=== PATIENT | female | born 1975 | race Caucasian/White ===

== ENCOUNTER 2019-06-18 12:01 | Emergency (ER) | payer OTHER, SELFPAY ==
[2019-06-18] VITALS (7 sets, daily range): BP systolic 101–147; BP diastolic 66–84; PULSE 77–93; RESP 16–20; TEMP 36.4–37.2; O2SAT 93–100
--- NOTE | ~2019-06-18 | XR_ITS ---
EXAMINATION: XR chest 2V 06/18/2019 13:32 INDICATION: Shortness of breath PROCEDURE: 2 view chest COMPARISON: 12/14/2018 FINDINGS: The lungs are clear. The cardiomediastinal silhouette is within normal limits. There are no pleural effusions. There is no pneumothorax suspected. There are cholecystectomy clips. IMPRESSION: 1: NO ACUTE CARDIOPULMONARY DISEASE. Reviewed, dictated and finalized at location A.
--- NOTE | ~2019-06-18 | CT_ITS ---
EXAMINATION: CTA chest PE protocol EXAM DATE: 06/18/2019 18:43 INDICATION: Shortness of breath. TECHNIQUE: Spiral CTA of the chest (pulmonary arteries) was performed with 100 cc Omnipaque 350 intr avenous contrast injection. Images were acquired during the pulmonary arterial phase. Coronal maxi mum intensity projection 3D-reconstructions were created by the technologist on dedicated workstation . Axial, coronal and sagittal reformatted images were reviewed. The dose-length product (DLP) for t his examination was 462.02 mGy-cm. The exposure was tailored according to patient size (auto mA exp osure control), and iterative reconstruction (ASIR) was used as additional dose reduction technique. There is no prior study for comparison. FINDINGS: Pulmonary arteries are well opacified and without intraluminal filling defects. No thora cic aortic dissection. Linear right middle lobe subsegmental atelectasis. Vague left lower lobe grou ndglass opacities probably developing acute infectious process. There are no pleural or pericardial effusions. Tracheobronchial tree is patent. There is no mediastinal, hilar or axillary lymphadeno brandon. There is no pneumothorax. Heart normal in size. There is mild coronary arterial calcific ation, arterial sclerosis. There are cholecystectomy clips. There is mild thoracic spondylosis with out osteoblastic or osteolytic lesions identified. IMPRESSION: 1. Vague left lower lobe groundglass opacities likely developing pneumonia. 2. Bibasilar linear atelectasis. Reviewed, dictated and finalized at location A.
--- NOTE | 2019-06-18 12:15 | ECG_ITS ---
Measurements Intervals [place] Rate: 85 P: 152 AK: 133 QRS: -25 QRSD: 76 T: -28 QT: 351 QTc: 419 Interpretive Statements ECTOPIC ATRIAL RHYTHM POSSIBLE LEFT ATRIAL ENLARGEMENT LOW QRS VOLTAGE IN PRECORDIAL LEADS BORDERLINE T WAVE ABNORMALITY- INFERIOR LEADS ABNORMAL ECG Electronically Signed On 06-18-2019 13:04:36 CDT by Jacob Aponte D.O.
[2019-06-18 12:32] LABS: Basophils Percent Auto 0.2 % (0.2-1.2); Eosinophils Absolute Auto 0.4 K/mm3 (0-0.3); Eosinophils Percent Auto 3.8 % (0-4.4); Hematocrit 42.1 % (37.0-47.0); Hemoglobin 14.3 g/dL (12.0-15.0); Immature Granulocyte Absolute 0.06 K/mm3 (0.00-0.031); Immature Granulocyte Percent A 0.6 % (0-0.5); Lymphocytes Absolute Auto 1.92 K/mm3 (0.9-3.2); Lymphocytes Percent Auto 17.8 % (18.3-44.2); Mean Corpuscular Hemoglobin 32.5 pg (26-34); Mean Corpuscular Volume 95.7 fl (80-100); Mean Platelet Volume 9.2 fl (7.4-10.4); Monocytes Absolute Auto 0.8 K/mm3 (0.1-0.6); Monocytes Percent Auto 7.3 % (2.6-8.5); Neutrophils Absolute Auto 7.6 K/mm3 (1.3-6.7); Neutrophils Percent Auto 70.3 % (45.5-73.1); Platelet Count Result 335 k/mm3 (150-375); Red Cell Distribution Width 11.9 % (11.5-14.5); White Blood Count 10.8 K/mm3 (4.5-10.0)
[2019-06-18 12:46] LABS: Blood Urea Nitrogen 21 mg/dL (7-17); Calcium 9.1 mg/dL (8.4-10.2); Carbon Dioxide 22 mmol/L (22-30); Chloride 102 mmol/L (98-107); Estimated CRCL calculation 100 ml/min; Estimated Glomerular Filt Rate > 60; Glucose 80 mg/dL (65-105); Sodium 136 mmol/L (137-145)
--- NOTE | 2019-06-18 15:34 | ED.SOB ---
HPI - SOB/Dyspnea General Chief Complaint: Shortness of Breath/Dyspnea Stated Complaint: SOB Time Seen by Provider: 06/18/19 15:20 Source: patient and RN notes reviewed Mode of arrival: ambulatory Limitations: no limitations History of Present Illness HPI Narrative: Pt is a 43 y/o female presenting to the ED c/o SOB. Pt reports she was diagnosed with Influenza on 06/06 and states her Sx's have worsened since. Pt notes she was prescribed TamiFlu and is also taking DayQuil, NyQuil, and Sudafed. Pt reports CP described as heaviness radiating to her back, orthopnea, cough, rhinorrhea, diaphoresis, wheezing N/V that have since resolved, and body aches. Pt states she recently picked up Dr. Cervantes as her PCP but was seen at [facility] when she was diagnosed with Influenza. Pt states she has a Hx of asthma and notes she has been using her home inhaler of Albuterol about 5-6 times per day. Pt states she quit smoking on 06/05, and notes she formerly smoked 0.5 every 3 days. Pertinent past history: asthma Onset (ago): day(s) () Associated symptoms: chest pain (radiating to back), cough, wheezing, diaphoresis, nausea/vomiting (Resolved) and other (Rhinorrhea; Body aches) Related Data Allergies Allergy/AdvReac Type Severity Reaction Status Date / Time No Known Allergies Allergy Verified 06/18/19 16:46 Review of Systems Review of Systems: All systems reviewed & are unremarkable except as noted in HPI and below Constitutional: Constitutional: Reports body ache(s) ENT: Reports other (Rhinorrhea) Cardiovascular: Cardiovascular: Reports chest pain (Radiating to back) and Reports diaphoresis Respiratory: Respiratory: Reports cough, Reports dyspnea (Orthopnea) and Reports wheezing Gastrointestinal: Gastrointestinal: Reports nausea (Resolved) and Reports vomiting (Resolved) [facility] Past Medical History Medical History (Updated 06/18/19 @ 19:23 by Karma Oh MD) Asthma Influenza Surgical History Surgical History H/O spinal fusion C6-C7 History of x2 History of cholecystectomy Social History Social History Smoking status: Former smoker Smoking end date: 06/05/19 Exam Narrative: Exam Narrative: GENERAL: Well-appearing, well-nourished, and in no acute distress. HEAD: Normocephalic, atraumatic EYES: PERRLA and EOMI, conjunctiva clear without discharge EARS: TM's clear bilaterally without erythema or dullness NOSE: Nares clear, no rhinorrhea or epistaxis THROAT:Mucous membranes moist, Oropharynx normal without erythema, exudate, peritonsillar swelling or fluctuance NECK: Supple, without lymphadenopathy or mass HEART: Regular rate and rhythm. No murmur heard. Normal peripheral pulses. ABDOMEN: Soft, nontender, nondistended, normal active bowel sounds. No masses. No rebound or guarding, No organomegaly. EXTREMITIES: No edema, normal strength with full range of motion. SKIN: Warm, dry, normal color without rash NEURO: Alert and oriented x3. CN 2-12 grossly intact. No focal deficits. PSYCH: Normal mood and affect. Resp: Effort & Inspection: normal respiratory effort, not labored and not tachypneic Auscultation: wheezes expiratory wheezes and posterior Course Vital Signs Vital signs: Vital Signs Temperature 97.5 F L 06/18/19 12:20 Pulse Rate 93 06/18/19 12:20 Respiratory Rate 20 06/18/19 12:20 Blood Pressure 101/71 06/18/19 12:20 Pulse Oximetry 93 06/18/19 12:20 Temperature 98.9 F 06/18/19 20:48 Pulse Rate 89 06/18/19 20:48 Respiratory Rate 18 06/18/19 20:48 Blood Pressure 106/70 06/18/19 20:48 Pulse Oximetry 100 06/18/19 20:48 MDM - SOB/Dyspnea Differential Diagnosis Differential diagnosis: Likely acute exacerbation of chronic obstructive airways disease, community acquired pneumonia, asthma with exacerbation and pulmonary embolism Lab Data Attestation: I reviewed the pat
[2019-06-18] MEDS: ALBUTEROL SULFATE NEB 2.5 MG/0.5 ML INH 5 MG INHALATION (15:55)
[2019-06-18] MEDS: IPRATROPIUM BR 0.02% INH SOLN 0.5 MG/2.5 ML VIAL INHALATION (15:55)
[2019-06-18] MEDS: predniSONE 20 MG TABLET 60 MG PO (16:33)
[2019-06-18 16:46] LABS: INR 0.9; Prothrombin Time 11.8 Seconds (11.1-14.7)
[2019-06-18 16:47] LABS: Partial Thromboplastin Time 30.3 SECONDS (22.3-36.8)
[2019-06-18 16:49] LABS: D Dimer 0.49 ug/mL (<0.48)
[2019-06-18 17:15] LABS: Troponin I < 0.012 ng/mL (0.000-0.034)
[2019-06-18] MEDS: AZITHROMYCIN 250 MG TABLET 500 MG PO (20:02)
== END 2019-06-18 20:50 | disposition home or self-care (01) ==
PROVIDERS: Emergency Medicine; Emergency Provider General Practice
DX: J18.9 Pneumonia, unspecified organism (principal); J45.909 Unspecified asthma, uncomplicated; R94.31 Abnormal electrocardiogram [ECG] [EKG]; Z98.1 Arthrodesis status
CPT/HCPCS: 36415; 71046; 71275; 80048; 81025; 84484; 85025; 85380; 85610; 85730; 93005; 94640; 96365; 99284; A9270; J0696; J7512; Q9967

== ENCOUNTER 2020-06-12 13:34 | Emergency (ER) | payer OTHER, SELFPAY ==
--- NOTE | ~2020-06-12 | US_ITS ---
EXAMINATION: US pelvic complete w TV EXAM DATE: 06/12/2020 14:44 INDICATION: Pelvic pain, vaginal bleeding. TECHNIQUE: Pelvic transabdominal and transvaginal sonogram was performed. There are multiple graysca le and Doppler images available for interpretation. There is no prior study for comparison. FINDINGS: Uterus measures 8.2 x 5.4 x 4.1 cm, is anteverted and morphologically normal. Endometrial stripe measures 5 mm, within normal limits. There is no free pelvic fluid. Right adnexa: The ovary is not identified. There is no adnexal mass. Left adnexa: The ovary is not identified. There is no adnexal mass. IMPRESSION: 1. Unremarkable pelvic ultrasound exam. Reviewed, dictated and finalized at location A. 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
[2020-06-12 13:41] VITALS: BP 135/119; PULSE 110; RESP 20; O2SAT 100
--- NOTE | 2020-06-12 14:14 | ED.GENADULT ---
HPI - General Adult General Chief complaint: Vaginal Bleeding <Omega De Los Santos PA-C - Last Filed: 06/12/20 15:56> Stated complaint: vag bleed <Omega De Los Santos PA-C - Last Filed: 06/12/20 15:56> Time Seen by Provider: 06/12/20 13:41 <JUDI Stevens Last Filed: 06/12/20 15:56> Source: patient <Omega De Los Santos PA-C - Last Filed: 06/12/20 15:56> Mode of arrival: ambulatory <Omega De Los Santos PA-C - Last Filed: 06/12/20 15:56> Limitations: no limitations <Omega De Los Santos PA-C - Last Filed: 06/12/20 15:56> History of Present Illness HPI narrative: Patient is a 44-year-old female who presents to emergency department for evaluation of vaginal bleeding that started 1 day ago noting she woke with cramping and vaginal bleeding going through a pad roughly an hour patient notes that she has not had a period in a long time patient denies injury trauma or other complaints patient presents in no distress has not follow-up with gynecology for this nor does she deny similar occurrence in the past <Omega De Los Santos PA-C - Last Filed: 06/12/20 15:56> Related Data Allergies/adverse reactions: Allergies Allergy/AdvReac Type Severity Reaction Status Date / Time No Known Allergies Allergy Verified 06/18/19 16:46 <Omega De Los Santos PA-C - Last Filed: 06/12/20 15:56> Review of Systems Review of Systems: All systems reviewed & are unremarkable except as noted in HPI and below <Omega De Los Santos PA-C - Last Filed: 06/12/20 15:56> [facility] Past Medical History Medical History: Medical History Asthma Influenza <JUDI Stevens Last Filed: 06/12/20 15:56> Surgical History Surgical History: Surgical History H/O spinal fusion C6-C7 History of x2 History of cholecystectomy <JUDI Stevens Last Filed: 06/12/20 15:56> Social History Social History: Social History Smoking status: Former smoker Smoking end date: 06/05/19 <Omega De Los Santos PA-C - Last Filed: 06/12/20 15:56> Exam Narrative: Exam Narrative: GENERAL: Well-appearing, well-nourished, and in no acute distress. HEAD: Normocephalic, atraumatic. EYES: PERRLA and EOMI. ENT: Nares clear, no rhinorrhea or epistaxis. Mucous membranes moist. CHEST: Clear to auscultation. No respiratory distress. No wheezes rales or rhonchi HEART: Regular rate and rhythm. No murmur heard. Normal peripheral pulses. ABDOMEN: Soft, nontender, nondistended EXTREMITIES: Normal range of motion. No edema. SKIN: Warm, dry, no rash. NEURO: No focal deficits. Alert and oriented x3. PSYCH: Normal mood and affect. <Omega De Los Santos PA-C - Last Filed: 06/12/20 15:56> Course Course Emergency Course: Patient in the room resting comfortably in no distress will be discharged with plan follow-up with gynecology. Patient hemodynamically stable at this time no high risk changes in the evaluation patient agrees to follow with gynecology and will return if symptoms worsen <Omega De Los Santos PA-C - Last Filed: 06/12/20 15:56> Vital Signs Vital signs: Vital Signs Pulse Rate 110 H 06/12/20 13:41 Respiratory Rate 20 06/12/20 13:41 Blood Pressure 135/119 H 06/12/20 13:41 Pulse Oximetry 100 06/12/20 13:41 Pulse Rate 70 06/12/20 16:35 Respiratory Rate 16 06/12/20 16:35 Blood Pressure 110/72 06/12/20 16:35 Pulse Oximetry 98 06/12/20 16:35 <Omega De Los Santos PA-C - Last Filed: 06/12/20 15:56> Vital Signs Pulse Rate 110 H 06/12/20 13:41 Respiratory Rate 20 06/12/20 13:41 Blood Pressure 135/119 H 06/12/20 13:41 Pulse Oximetry 100 06/12/20 13:41 Pulse Rate 70 06/12/20 16:35 Respiratory Rate 16 06/12/20 16:35 Blood Pressure 110/72 06/12/20 16:35 Pulse Oximetry 98
[2020-06-12] MEDS: SODIUM CHLORIDE 0.9% IV 1,000 ML 999 ML IV CONT (14:46)
[2020-06-12 14:55] LABS: Basophils Percent Auto 0.4 % (0.2-1.2); Eosinophils Absolute Auto 0.6 K/mm3 (0-0.3); Eosinophils Percent Auto 6.2 % (0-4.4); Hematocrit 45.6 % (37.0-47.0); Hemoglobin 15.4 g/dL (12.0-15.0); Immature Granulocyte Absolute 0.04 K/mm3 (0.00-0.031); Immature Granulocyte Percent A 0.4 % (0-0.5); Lymphocytes Percent Auto 30.9 % (18.3-44.2); Mean Corpuscular HGB Conc 33.8 g/dl (32-36); Mean Corpuscular Hemoglobin 32.8 pg (26-34); Mean Corpuscular Volume 97.2 fl (80-100); Mean Platelet Volume 8.5 fl (7.4-10.4); Monocytes Absolute Auto 0.7 K/mm3 (0.1-0.6); Monocytes Percent Auto 7.3 % (2.6-8.5); Neutrophils Absolute Auto 5.1 K/mm3 (1.3-6.7); Neutrophils Percent Auto 54.8 % (45.5-73.1); Platelet Count Result 320 k/mm3 (150-375); Red Blood Count 4.69 M/mm3 (4.2-5.4); Red Cell Distribution Width 11.9 % (11.5-14.5); White Blood Count 9.4 K/mm3 (4.5-10.0)
[2020-06-12 15:08] LABS: Anion Gap 1 mmol/L (8-16); Blood Urea Nitrogen 15 mg/dL (7-17); Calcium 8.4 mg/dL (8.4-10.2); Carbon Dioxide 32 mmol/L (22-30); Chloride 105 mmol/L (98-107); Estimated CRCL calculation 64 ml/min; Estimated Glomerular Filt Rate 54; Glucose 62 mg/dL (65-105); Potassium 3.9 mmol/L (3.4-5.0); Sodium 138 mmol/L (137-145)
[2020-06-12 15:10] VITALS: BP 104/61
[2020-06-12 15:11] VITALS: BP 125/71; PULSE 90
[2020-06-12 15:12] VITALS: BP 111/70; PULSE 90
[2020-06-12 16:35] VITALS: BP 110/72; PULSE 70; RESP 16; O2SAT 98
== END 2020-06-12 16:35 | disposition home or self-care (01) ==
PROVIDERS: Emergency Medicine Emergency Medical Services; Emergency Provider Emergency Medicine; PCP Emergency Medicine
DX: N93.9 Abnormal uterine and vaginal bleeding, unspecified (principal); J45.909 Unspecified asthma, uncomplicated; Z98.1 Arthrodesis status; Z87.891 Personal history of nicotine dependence
CPT/HCPCS: 36415; 76830; 76856; 80048; 85025; 96360; 96361; 99284; J7030

== ENCOUNTER 2020-06-26 22:20 | Emergency (ER) | payer OTHER, SELFPAY ==
--- NOTE | ~2020-06-26 | XR_ITS ---
XR knee LT 3V DATE: 06/26/2020 22:49 INDICATION: Anterior and posterior left knee pain. Injury 3 weeks ago TECHNIQUE: 3 views COMPARISON: None FINDINGS: There is tricompartment osteoarthritis with aakash-articular spurring primarily at the medial and lateral compartments and to a minimal extent the patellofemoral compartment. Joint spaces are r elatively preserved. No fracture or dislocation or joint effusion. No radiopaque intra-articular loose body or chondrocal cinosis. IMPRESSION: Osteoarthritis No fracture or dislocation ofr joint effusion Reviewed, dictated and finalized at location A.
[2020-06-26 22:23] VITALS: BP 125/77; PULSE 99; RESP 16; TEMP 36.2; O2SAT 100
--- NOTE | 2020-06-26 22:37 | ED.GENADULT ---
HPI - General Adult General Chief complaint: Extremity Injury, Lower Stated complaint: hurt my knee Time Seen by Provider: 06/26/20 22:21 Source: patient Mode of arrival: ambulatory Limitations: no limitations History of Present Illness HPI narrative: Patient is a 44-year-old female who presents with left knee injury patient notes 3 weeks ago having injured the knee while stepping and then again carrying a heavy object buckled the knee in the last day patient notes aching pain worse with activity and movement patient notes swelling of the joint patient took Aleve with some improvement patient denies prior occurrence or other injuries or complaints presents in no distress Related Data Allergies Allergy/AdvReac Type Severity Reaction Status Date / Time No Known Allergies Allergy Verified 06/18/19 16:46 Review of Systems Review of Systems: All systems reviewed & are unremarkable except as noted in HPI and below PMFSH Past Medical History Medical History Asthma Influenza Surgical History Surgical History H/O spinal fusion C6-C7 History of x2 History of cholecystectomy Social History Social History Smoking status: Former smoker Smoking end date: 06/05/19 Exam Narrative: Exam Narrative: GENERAL: Well-appearing, well-nourished, and in no acute distress. HEAD: Normocephalic, atraumatic. EYES: PERRLA and EOMI. ENT: Nares clear, no rhinorrhea or epistaxis. Mucous membranes moist. EXTREMITIES: swelling and tenderness of the left knee joint no erythema no warmth to touch SKIN: Warm, dry, no rash. NEURO: No focal deficits. Alert and oriented x3. Cranial nerves II through XII grossly intact. Neurovascularly intact PSYCH: Normal mood and affect. Course Course Emergency Course: Patient with negative radiographs placed in [place] wrap given crutches will follow with her orthopedic surgeon was also given the on-call orthopedic surgeon patient felt appropriate for outpatient reevaluation agrees to follow-up as instructed Vital Signs Vital signs: Vital Signs Temperature 97.1 F L 06/26/20 22:23 Pulse Rate 99 06/26/20 22:23 Respiratory Rate 16 06/26/20 22:23 Blood Pressure 125/77 06/26/20 22:23 Pulse Oximetry 100 06/26/20 22:23 Temperature 97.1 F L 06/26/20 22:23 Pulse Rate 99 06/26/20 22:23 Respiratory Rate 16 06/26/20 22:23 Blood Pressure 125/77 06/26/20 22:23 Pulse Oximetry 100 06/26/20 22:23 Medical Decision Making MDM Narrative Medical decision making narrative: Patients injury or pain is consistent with musculoskeletal etiology. No signs of neurological or vascular compromise on exam. Compartments and tisues are soft without signs of compartment syndrome. Pain is felt appropriate for further evaluation on an outpatient basis. Vital Signs Vital Signs: Vital Signs Temperature 97.1 F L 06/26/20 22:23 Pulse Rate 99 06/26/20 22:23 Respiratory Rate 16 06/26/20 22:23 Blood Pressure 125/77 06/26/20 22:23 Pulse Oximetry 100 06/26/20 22:23 Temperature 97.1 F L 06/26/20 22:23 Pulse Rate 99 06/26/20 22:23 Respiratory Rate 16 06/26/20 22:23 Blood Pressure 125/77 06/26/20 22:23 Pulse Oximetry 100 06/26/20 22:23 Discharge Plan Discharge Clinical Impression: Acute pain of left knee Patient Disposition: Home, Self-Care Condition: Stable Instructions: Antibiotic Form, Arthralgia (ED) Additional Instructions: Wear brace and use crutches. Limited weight on the affected leg until able to bear weight without pain. Ice and elevate extremity. Pain medication as needed and directed. Follow up with your doctor for further care in the next day to set up for reevaluation. Return if symptoms worsen or concerns or any increase in redness swelling pain or fever over 100.5
[2020-06-26 23:58] VITALS: BP 132/71; PULSE 74; RESP 16; O2SAT 97
== END 2020-06-26 23:58 | disposition home or self-care (01) ==
PROVIDERS: Emergency Provider Emergency Medicine; PCP Emergency Medicine
DX: M25.562 Pain in left knee (principal); J45.909 Unspecified asthma, uncomplicated; Z98.1 Arthrodesis status; Z87.891 Personal history of nicotine dependence; X50.9XXA Other and unspecified overexertion or strenuous movements or postures, initial encounter
CPT/HCPCS: 73562; 99283

== ENCOUNTER 2021-04-09 09:39 | Outpatient (CLI) | payer OTHER, SELFPAY ==
--- NOTE | 2021-04-09 12:16 | NEURO_ITS ---
PATIENT NUMBER: [id number] IMPRESSION: # Complains of nocturnal paresthesia and pain in both hands. # Severe Carpal Tunnel Syndrome bilateally. # Needle exam not ordered. Nerve Conduction Studies Anti Sensory Summary Table Stim Site NR Peak (ms) P-T Amp (?V) Site1 Site2 Delta-P (ms) Dist (cm) Robin (m/s) Left Median Anti Sensory (2-3nd Digit) Wrist 8.2 7.8 Wrist 2-3nd Digit 8.2 14.0 17 Wrist 7.9 0.6 Wrist 2-3nd Digit 8.2 14.0 17 Right Median Anti Sensory (2-3nd Digit) Wrist 6.3 6.5 Wrist 2-3nd Digit 6.3 14.0 22 Wrist 6.6 5.9 Wrist 2-3nd Digit 6.3 14.0 22 Left Radial Anti Sensory (Base 1st Digit) Wrist 2.1 18.0 Wrist Base 1st Digit 2.1 0.0 Right Radial Anti Sensory (Base 1st Digit) Wrist 2.2 24.5 Wrist Base 1st Digit 2.2 0.0 Left Ulnar Anti Sensory (5th Digit) Wrist 2.7 68.5 Wrist 5th Digit 2.7 14.0 52 Right Ulnar Anti Sensory (5th Digit) Wrist 2.4 48.4 Wrist 5th Digit 2.4 14.0 58 Motor Summary Table Stim Site NR Onset (ms) O-P Amp (mV) Site1 Site2 Delta-0 (ms) Dist (cm) Robin (m/s) Left Median Motor (Abd Poll Brev) Wrist 6.6 0.7 Elbow Wrist 2.5 27.0 108 Elbow 9.1 1.2 Right Median Motor (Abd Poll Brev) Wrist 7.3 2.4 Elbow Wrist 4.9 27.0 55 Elbow 12.2 2.2 Left Ulnar Motor (Abd Dig Minimi) Wrist 2.5 8.9 A Elbow Wrist 4.4 27.0 61 A Elbow 6.9 8.2 Right Ulnar Motor (Abd Dig Minimi) Wrist 2.5 9.5 A Elbow Wrist 5.1 28.0 55 A Elbow 7.6 9.0 F Wave Studies NR F-Lat (ms) L-R F-Lat (ms) Left Median (Mrkrs) (Abd Poll Brev) 32.88 2.46 Right Median (Mrkrs) (Abd Poll Brev) 30.42 2.46 Left Ulnar (Mrkrs) (Abd Dig Min) 31.40 3.74 Right Ulnar (Mrkrs) (Abd Dig Min) 27.65 3.74 MTDD
== END 2021-04-09 09:40 | disposition home or self-care (01) ==
LOC: ANHNEURO 09:40
PROVIDERS: PCP Emergency Medicine; Visit Provider Plastic Surgery
DX: R20.0 Anesthesia of skin (principal); G56.03 Carpal tunnel syndrome, bilateral upper limbs
CPT/HCPCS: 95911

== ENCOUNTER → 2021-06-16 01:51 | Outpatient (CLI) | payer OTHER, SELFPAY ==
[2021-06-16 11:07] LABS: SARS-CoV-2 RNA PCR Negative
== END ==
PROVIDERS: PCP Emergency Medicine; Visit Provider Plastic Surgery
DX: Z01.812 Encounter for preprocedural laboratory examination (principal); Z20.822 Contact with and (suspected) exposure to COVID-19
CPT/HCPCS: C9803; U0003; U0005

== ENCOUNTER 2021-06-18 02:02 | Day surgery (SDC) | payer OTHER, SELFPAY ==
[2021-06-16 11:52] VITALS: BMI 33.3
--- NOTE | 2021-06-16 11:59 | PC.NURSE ---
Report to the Outpatient Waiting Room, entrance under the green pavilion located off [facility], at time 1130 on date 06/18/21. OR Time: 1330. - You and your visitor will be asked a series of questions to screen for COVID 19 for your protection. - A mask is required within the hospital. One visitor will be allowed to accompany the patient into the hospital. Patients visitor will be instructed to remain with patient at all times or leave the building. We will allow the visitor to come back to the postoperative area when patient is ready. Preoperative COVID Testing Requirements: COVID TEST 06/16 No COVID Test needed if: (proof is required; if not received patient will have Rapid Test prior to entry) - Patient has received COVID Vaccine at least 14 days prior to procedure date or - Patient has positive COVID test result within last 90 days of surgery date. COVID Test needed if above criteria is not met If not COVID vaccinated a COVID test must be conducted within 72 hours of surgery and patient is asked to isolate self from time of testing until procedure. You will go to the [facility] for your COVID testing. The [facility] site is located at the corner of [address] [facility]. You will only be called if COVID results are positive and your surgeon may reschedule your elective surgery date. Patients may have clear liquids (water, carbonated beverages, clear teas, apple juice) until 3 hours prior to surgery with a maximum of 20 ounces. - No food from midnight until time of surgery Take the following medications with a SIP of water the morning of surgery: NONE Medications to discontinue per physician: N/A Date to take last dose: N/A Please no make-up, nail bahraini, hairspray, perfume, deodorant, or body powder the day of surgery. No jewelry (including any body piercings) or valuables the day of surgery, leave them at home. Please take a shower or bath the night before, or the morning of, surgery with an antibacterial soap. Wear comfortable, loose fitting clothing. - Jewelry must be removed prior to entering the operating room. Rings and piercings that are not removed may be cut off. - The hospital will not accept responsibility for valuables. - Please leave all valuables, including medications, at home the day of surgery. If you are going home after surgery, a licensed driver sales must drive you home. - NO public transportation without another adult. - We recommend that an adult stay with you for 24 hours following discharge. - We also recommend that you do not drive, make important decision, drink alcoholic beverages, or take any drugs that were not prescribed by your health care provider for at least 24 hours after your discharge time. Follow any additional instructions given to you from your surgeon. Telephone instructions given to TRAVIS ACEVEDO and asked if any additional questions and then verbalized understanding. Patient advised to call surgeon office or pre surgery nurse liaison [phone] if any additional questions.
--- NOTE | 2021-06-18 07:16 | WPDHPUPDATE1 ---
History and Physical Update Update Date/Time: 06/18/21 07:16 History and Physical has been reviewed, including an updated exam of the patient. There are NO changes in the patient's condition. Risks, benefits, and alternatives have been discussed and questions answered. Patient agrees to proceed with procedure.
[2021-06-18 11:45] VITALS: BP 115/66; PULSE 87; RESP 16; TEMP 36.4; O2SAT 100
--- NOTE | 2021-06-18 12:16 | WPDANESEPPF ---
Anes - Initial Pre Proc Eval Procedure: Operation Date: 06/18/21 13:30 Proposed Procedures p Right Open Carpal Tunnel Release - Adam Harvey MD s Right Trigger Thumb Release - Adam Harvey MD Date/Time: 06/18/21 12:16 Surgeon: Adam Harvey MD Pre Op Diagnosis: Rt Carpal Tunnel Syndrom, Rt Trigger Thumb Patient Data Age: 45 Gender: F Height: 1.65 m Weight: 90.72 kg Allergies Allergy/AdvReac Type Severity Reaction Status Date / Time No Known Allergies Allergy Verified 06/18/21 12:02 Home Medications Medication Instructions Recorded Confirmed Type ibuprofen [IBU] 600 mg PO Q6H PRN #7 tablet 06/26/20 06/18/21 Rx Patient hx anesthesia problems: none Family hx anesthesia problems: none Results Review: All pre-operative results and documents have been reviewed as part of the pre-operative evaluation. PMFSH Past Medical History Medical History Asthma Influenza Surgical History Surgical History H/O spinal fusion C6-C7 History of x2 History of cholecystectomy Social History Social History Years smoked: 30 Smoking status: Former smoker Tobacco type: cigarettes Smoking end date: 06/05/19 Alcohol intake: never Substance use: current Substance use type: marijuana Living arrangements: with family Spiritual care concerns: No Anes - Eval Final PreProcedure Day of Procedure 06/18/21 12:16 Patient weight: obese Heart: regular rate and rhythm Lungs: clear to auscultation and normal air movement Airway: Mallampati scale class II Neurological: alert and oriented Last oral intake: >/= 8 hours ASA classification: III Emergent: no Anesthetic plan: proceed Anesthesia type and monitoring: general GIVS and standard monitoring Results Review: All pre-operative results and documents have been reviewed as part of the pre-operative evaluation. Informed Consent: The patient's anesthetic plan and its attendant risks and benefits were discussed with the patient/family/POA. Questions were solicited and answers provided to the satisfaction of the patient/family/POA.
[2021-06-18] MEDS: LACTATED RINGERS 1,000 ML 30 ML IV CONT (12:23)
[2021-06-18] MEDS: BACITRACIN OINTMENT 15 GM TUBE 1 APPLIC TOPICAL (13:42)
[2021-06-18 14:02] VITALS: BP 97/65; PULSE 97; RESP 18; O2SAT 99
--- NOTE | 2021-06-18 14:15 | W.PM.PROC2 ---
Procedure Note - Detailed Date of Procedure 06/18/21 Pre-op Diagnosis Rt Carpal Tunnel Syndrom, Rt Trigger Thumb Post-op Diagnosis Same Procedure Performed Right open carpal tunnel release and right trigger thumb release Surgeon Adam Harvey MD Anesthesia MAC Description of Procedure The right carpal tunnel and right trigger thumb sites were marked on the patient in the holding area. She was then taken to the operating room she is placed supine on the operating table. The time-out was held and confirmed. She was given IV sedation. The right upper extremity was prepped and draped in usual fashion a tourniquet was applied to the arm. The 2 sites were marked and locally infiltrated with 1% lidocaine with epinephrine. The extremity was exsanguinated and the tourniquet inflated to 250 mmHg. The incision was made 1st at the base of the thumb. Blunt dissection revealed the flexor tendon sheath. Neurovascular bundles were identified and preserved. The 15 blade was used to lyse the A1 mikhail opening it. The scissor tips completed that task in both directions. Patient was asleep was able to pull the flexor tendon up out of the wound on the tips of Littler scissors. This did not reveal significant thickening there did appear to be some fibrosis. The digit did not lock . Attention was turned to the carpal canal where the incision was made. Blunt dissection revealed the palmar aponeurosis. This and the carpal retinaculum were incised with a 15 blade. Under 3 point retraction under direct vision the lysis was completed distally and proximally with the scissors. There was no unusual anatomy noted. The carpal tunnel wound was closed with interrupted 5 0 nylon and the trigger thumb wound with 5 0 nylon tolerated well. The usual bandage was applied and the tourniquet was released. Estimated Blood Loss 1 Tourniquet Time 18 Drains No Packing No Pathology None sent Complications No immediate complications Condition Stable Disposition Same day
[2021-06-18] MEDS: oxyCODONE HCL (*CRX) 5 MG TAB IR PO (14:27)
[2021-06-18 14:30] VITALS: BP 116/74; PULSE 88; RESP 20
[2021-06-18 14:50] VITALS: BP 102/73; PULSE 91; RESP 20
== END 2021-06-18 15:00 | disposition home or self-care (01) ==
PROVIDERS: Visit Provider Plastic Surgery
PROC: (CPT 64721; principal; 2021-06-18 13:30)
PROC: (CPT 26055; 2021-06-18 13:30)
DX: G56.01 Carpal tunnel syndrome, right upper limb (principal); M65.311 Trigger thumb, right thumb; J45.909 Unspecified asthma, uncomplicated; Z98.1 Arthrodesis status; Z90.49 Acquired absence of other specified parts of digestive tract; Z87.891 Personal history of nicotine dependence; F12.90 Cannabis use, unspecified, uncomplicated; E66.9 Obesity, unspecified; Z68.36 Body mass index [BMI] 36.0-36.9, adult
CPT/HCPCS: 64721; 26055; A9270; J1100; J2250; J2405; J2704; J3010; J7120

== ENCOUNTER → 2021-07-25 00:18 | Outpatient (CLI) | payer OTHER, SELFPAY ==
[2021-07-25 11:10] LABS: SARS-CoV-2 RNA PCR Negative
== END ==
PROVIDERS: Visit Provider Plastic Surgery
DX: Z01.812 Encounter for preprocedural laboratory examination (principal); Z20.822 Contact with and (suspected) exposure to COVID-19
CPT/HCPCS: C9803; U0003; U0005

== ENCOUNTER 2021-07-29 00:55 | Day surgery (SDC) | payer OTHER, SELFPAY ==
[2021-07-27 15:05] VITALS: BMI 36.5
--- NOTE | 2021-07-27 15:11 | PC.NURSE ---
Report to the Outpatient Waiting Room, entrance under the green pavilion located off [facility], at time 0600 on date 07/29/21. OR Time: 0730. - You and your visitor will be asked a series of questions to screen for COVID 19 for your protection. - A mask is required within the hospital. One visitor will be allowed to accompany the patient into the hospital. Patients visitor will be instructed to remain with patient at all times or leave the building. We will allow the visitor to come back to the postoperative area when patient is ready. Preoperative COVID Testing Requirements: COVID TEST 07/25 - NEGATIVE No COVID Test needed if: (proof is required; if not received patient will have Rapid Test prior to entry) - Patient has received COVID Vaccine at least 14 days prior to procedure date or - Patient has positive COVID test result within last 90 days of surgery date. COVID Test needed if above criteria is not met If not COVID vaccinated a COVID test must be conducted within 72 hours of surgery and patient is asked to isolate self from time of testing until procedure. You will go to the [facility] for your COVID testing. The [facility] site is located at the corner of [address] from [facility]. You will only be called if COVID results are positive and your surgeon may reschedule your elective surgery date. Patients may have clear liquids (water, carbonated beverages, clear teas, apple juice) until 3 hours prior to surgery with a maximum of 20 ounces. - No food from midnight until time of surgery Take the following medications with a SIP of water the morning of surgery: NONE Medications to discontinue per physician: N/A Date to take last dose: N/A Please no make-up, nail south korean, hairspray, perfume, deodorant, or body powder the day of surgery. No jewelry (including any body piercings) or valuables the day of surgery, leave them at home. Please take a shower or bath the night before, or the morning of, surgery with an antibacterial soap. Wear comfortable, loose fitting clothing. - Jewelry must be removed prior to entering the operating room. Rings and piercings that are not removed may be cut off. - The hospital will not accept responsibility for valuables. - Please leave all valuables, including medications, at home the day of surgery. If you are going home after surgery, a licensed national flatbed truck driver must drive you home. - NO public transportation without another adult. - We recommend that an adult stay with you for 24 hours following discharge. - We also recommend that you do not drive, make important decision, drink alcoholic beverages, or take any drugs that were not prescribed by your health care provider for at least 24 hours after your discharge time. Follow any additional instructions given to you from your surgeon. Telephone instructions given to TRAVIS ACEVEDO and asked if any additional questions and then verbalized understanding. Patient advised to call surgeon office or pre surgery nurse liaison [phone] if any additional questions.
--- NOTE | 2021-07-28 13:43 | WPDANESEPPF ---
Anes - Initial Pre Proc Eval Procedure: Operation Date: 07/29/21 07:30 Proposed Procedures p Left Open Carpal Tunnel Release - Adam Harvey MD Date/Time: 07/28/21 13:43 Surgeon: Adam Harvey MD Pre Op Diagnosis: left carpal tunnel syndrome Patient Data Age: 45 Gender: F Height: 1.65 m Weight: 99.5 kg Allergies Allergy/AdvReac Type Severity Reaction Status Date / Time No Known Allergies Allergy Verified 07/29/21 06:23 Home Medications Medication Instructions Recorded Confirmed Type No Home Medications 07/27/21 07/29/21 History Patient hx anesthesia problems: none Family hx anesthesia problems: none Results Review: All pre-operative results and documents have been reviewed as part of the pre-operative evaluation. [facility] Past Medical History Medical History Asthma Influenza Surgical History Surgical History H/O spinal fusion C6-C7 History of x2 History of cholecystectomy Social History Social History Years smoked: 30 Smoking status: Current every day smoker Tobacco type: cigarettes Alcohol intake: never Substance use: current Substance use type: marijuana Living arrangements: with family Spiritual care concerns: No Anes - Eval Final PreProcedure Day of Procedure 07/28/21 13:43 Patient weight: obese Heart: regular rate and rhythm Lungs: clear to auscultation and normal air movement Airway: Mallampati scale class II Neurological: alert and oriented Last oral intake: >/= 8 hours ASA classification: III Emergent: no Anesthetic plan: proceed Anesthesia type and monitoring: general GIVS and standard monitoring Results Review: All pre-operative results and documents have been reviewed as part of the pre-operative evaluation. Informed Consent: The patient's anesthetic plan and its attendant risks and benefits were discussed with the patient/family/POA. Questions were solicited and answers provided to the satisfaction of the patient/family/POA.
[2021-07-29] MEDS: LACTATED RINGERS 1,000 ML 30 ML IV CONT (06:54)
[2021-07-29 06:59] VITALS: BP 112/77; PULSE 82; RESP 16; TEMP 36.8; O2SAT 100
--- NOTE | 2021-07-29 07:17 | WPDHPUPDATE1 ---
History and Physical Update Update Date/Time: 07/29/21 07:17 History and Physical has been reviewed, including an updated exam of the patient. There are NO changes in the patient's condition. Risks, benefits, and alternatives have been discussed and questions answered. Patient agrees to proceed with procedure.
[2021-07-29] MEDS: LIDO 1%/EPINEPHRINE/PF 1:200,000 30 ML VIAL XX (07:43)
[2021-07-29] MEDS: BACITRACIN OINTMENT 15 GM TUBE 1 APPLIC TOPICAL (07:46)
[2021-07-29 07:55] VITALS: BP 96/65; PULSE 92; RESP 19; O2SAT 97
--- NOTE | 2021-07-29 08:00 | W.PM.PROC2 ---
Procedure Note - Detailed Date of Procedure 07/29/21 Pre-op Diagnosis left carpal tunnel syndrome Post-op Diagnosis Same Procedure Performed Left open carpal tunnel release Surgeon Adam Harvey MD Anesthesia MAC Description of Procedure The left carpal canal was marked on the patient the holding area. She was taken to the operating room where she was placed supine on the operating table. A time-out was held confirmed. She was given IV sedation in the extremity was prepped and draped in usual fashion. The site for the left open carpal tunnel release was again marked and locally infiltrated with 1% lidocaine with epinephrine. Tourniquet was inflated to 250 mmHg. The incision was made as marked and dissection was carried bluntly through the subcutaneous tissue to the palmar aponeurosis. This and the transverse retinaculum were incised with a 15 blade. Under 3 point retraction the retinaculum was divided distally and proximally to completely release it. There was no unusual anatomy noted. The skin was closed with interrupted 5 0 nylon suture. The usual bandage was applied. She is discharge instructions wound care follow-up she has a prescription for hydrocodone/APAP 5/325 6. Estimated Blood Loss 0 Tourniquet Time 9 Drains No Packing No Pathology None sent Complications No immediate complications Condition Stable Disposition Same day
[2021-07-29 08:25] VITALS: BP 111/76; PULSE 89; RESP 18
== END 2021-07-29 08:30 | disposition home or self-care (01) ==
PROVIDERS: Visit Provider Plastic Surgery
PROC: (CPT 64721; principal; 2021-07-29 07:30)
DX: G56.02 Carpal tunnel syndrome, left upper limb (principal); Z98.1 Arthrodesis status; F17.210 Nicotine dependence, cigarettes, uncomplicated; E66.9 Obesity, unspecified; Z68.34 Body mass index [BMI] 34.0-34.9, adult
CPT/HCPCS: 64721; A9270; J2250; J3010; J7120

== ENCOUNTER 2021-12-08 13:57 | Outpatient (CLI) | payer OTHER, SELFPAY ==
--- NOTE | ~2021-12-08 | XR_ITS ---
XR hand RT min 3V DATE: 12/08/2021 14:21 INDICATION: Second metacarpophalangeal joint osteoarthritis TECHNIQUE: 3 views of right hand COMPARISON: None FINDINGS: There is virtual obliteration of the second metacarpophalangeal joint space, moderate narro wing at the third metacarpophalangeal joint. No fracture, dislocation, periosteal reaction or bone destruction, erosive change or chondrocalcinosi s. IMPRESSION: Osteophytic change at the third and particularly the second metacarpophalangeal joints Reviewed, dictated and finalized at location B. IMPRESSION: Osteophytic change at the third and particularly the second metacar pophalangeal joints
== END 2021-12-08 13:58 | disposition home or self-care (01) ==
PROVIDERS: PCP Internal Medicine; Visit Provider Plastic Surgery
DX: M19.041 Primary osteoarthritis, right hand (principal)
CPT/HCPCS: 73130

== ENCOUNTER 2022-03-04 20:11 | Emergency (ER) | payer OTHER, SELFPAY ==
[2022-03-04 20:14] VITALS: BP 131/73; PULSE 108; RESP 20; TEMP 37.6; O2SAT 98
--- NOTE | 2022-03-04 20:29 | ED.URI ---
HPI - URI/Sore Throat General Chief Complaint: Upper Respiratory Infection Stated Complaint: yost/chills Time Seen by Provider: 03/04/22 20:21 History of Present Illness HPI Narrative: Patient a 46-year-old female who presents ER with cold symptoms. She is concerned she has influenza. Her roommates children have implant then she has been on them. Yesterday she began having cough and headache either. It persist today. No chest pain or chest pressure. She has been taking breathing treatments to help with wheezing. No dyspnea. Related Data Allergies Allergy/AdvReac Type Severity Reaction Status Date / Time No Known Allergies Allergy Verified 07/29/21 06:23 Review of Systems Review of Systems: All systems reviewed & are unremarkable except as noted in HPI and below Constitutional: Constitutional: Reports chills, Denies fatigue and Reports fever(s) ENT: Denies nasal congestion and Denies sore throat Cardiovascular: Cardiovascular: Denies chest pain, Denies rapid heart rate and Denies radiating jaw, neck or arm pain Respiratory: Respiratory: Reports cough, Denies dyspnea and Reports wheezing Gastrointestinal: Gastrointestinal: Denies abdominal pain, Denies nausea and Denies vomiting PMFSH Past Medical History Medical History Asthma Influenza Surgical History Surgical History H/O spinal fusion C6-C7 History of x2 History of cholecystectomy Social History Social History Years smoked: 30 Smoking status: Current every day smoker Tobacco type: cigarettes Alcohol intake: never Substance use: current Substance use type: marijuana Spiritual care concerns: No Exam Narrative: GENERAL: Fatigued-appearing, well-nourished, and in no acute distress. HEAD: Normocephalic, atraumatic. ENT: Mucous membranes moist. NECK: Supple. CHEST: Clear to auscultation. No respiratory distress. HEART: Tachycardic and regular. Normal peripheral pulses. ABDOMEN: Soft, nontender, nondistended. EXTREMITIES: Normal range of motion. No edema. SKIN: Warm, dry, no rash. NEURO: Alert and oriented x3. PSYCH: Normal mood and affect. Course Course Emergency Course: Patient flu a positive. Discharged with Tamiflu. Vital Signs Vital signs: Vital Signs Temperature 99.7 F H 03/04/22 20:14 Pulse Rate 108 H 03/04/22 20:14 Respiratory Rate 20 03/04/22 20:14 Blood Pressure 131/73 03/04/22 20:14 Pulse Oximetry 98 03/04/22 20:14 Oxygen Delivery Room Air 03/04/22 20:14 Temperature 99.7 F H 03/04/22 20:14 Pulse Rate 108 H 03/04/22 20:14 Respiratory Rate 20 03/04/22 20:14 Blood Pressure 131/73 03/04/22 20:14 Pulse Oximetry 98 03/04/22 20:14 Oxygen Delivery Room Air 03/04/22 20:14 MDM - URI/Sore Throat Lab Data Labs: Lab Results 03/04/22 Range/Units 20:18 Influenza A (RT-PCR) Positive (Negative) Influenza B (RT-PCR) Negative (Negative) RSV (RT-PCR) Negative (Negative) SARS-CoV-2 RNA (RT-PCR) Negative Discharge Plan Discharge Clinical Impression: Influenza A Patient Disposition: Home, Self-Care Condition: Stable Instructions: Influenza (ED) Additional Instructions: Return the ER if you cannot keep down food or water, you lose consciousness, you have chest pain or shortness of breath, you have additional concerns. Prescriptions: New oseltamivir 75 mg capsule 75 mg PO BID Qty: 10 0RF No Action hydrocodone-acetaminophen 5-325 mg tablet 1 tablet PO Q6H MDD 6 PRN (Reason: pain) Qty: 6 0RF ibuprofen 600 mg tablet 600 mg PO Q6H PRN (Reason: pain) Qty: 24 0RF Follow-up/Referrals: Clif,Kaitlin Hutson MD [Primary Care Provider] - 1 Week
[2022-03-04 21:02] LABS: Influenza A QL RT-PCR Positive (Negative); Influenza B QL RT-PCR Negative (Negative); RSV RNA, RT-PCR Negative (Negative); SARS-CoV-2 RNA PCR Negative
[2022-03-04] MEDS: OSELTAMIVIR PHOSPHATE 75 MG CAPSULE PO (21:14)
== END 2022-03-04 21:15 | disposition home or self-care (01) ==
PROVIDERS: Emergency Medicine; Emergency Provider Emergency Medicine; PCP Internal Medicine
DX: J10.1 Influenza due to other identified influenza virus with other respiratory manifestations (principal); Z20.822 Contact with and (suspected) exposure to COVID-19; J45.909 Unspecified asthma, uncomplicated; Z98.1 Arthrodesis status; F17.210 Nicotine dependence, cigarettes, uncomplicated
CPT/HCPCS: 87637; 99283; A9270

== ENCOUNTER 2022-04-18 14:52 | Emergency (ER) | payer OTHER, SELFPAY ==
--- NOTE | ~2022-04-18 | CT_ITS ---
EXAMINATION: CT diagnostic chest wo con DATE: 04/18/2022 16:52 INDICATION: severe midline tenderness to sternum s/p injury TECHNIQUE: Computed tomography (CT) of the chest was performed with 100 mL Omnipaque-350 intravenous contrast. Automated exposure control and iterative reconstruction technique were employed. The dose-l ength product was 433.51 mGy-cm. COMPARISON: 06/18/2019. FINDINGS: CHEST: Thoracic aorta: No significant dilation or calcification. Lung parenchyma and airways: Bilateral basilar scar/atelectasis. Thoracic inlet, axillae and chest wall: No thyroid or soft tissue mass. No axillary lymphadenopathy. No retrosternal hematoma. Mediastinum: Minimal residual thymic tissue. No mediastinal contusion. No mass or lymphadenopathy. Heart and pericardium: Normal heart size. No pericardial effusion. Coronary artery calcifications: . Pleura: No effusion or mass. Upper abdomen: No significant finding. Thoracic bones: Nondisplaced transverse sternal body fracture. Nondisplaced right anterior third and fourth rib fractures. IMPRESSION: Nondisplaced transverse sternal body fracture. Nondisplaced right anterior third and fourth rib fract ures. Reviewed, dictated and finalized at location K. PIT WORKER IMPRESSION: Nondisplaced transverse sternal body fracture. Nondisplaced right anterior thir d and fourth rib fractures.
--- NOTE | ~2022-04-18 | XR_ITS ---
EXAMINATION: XR chest 2V Exam Date/Time: 04/18/2022 15:17 ANIMAL GENETICIST HISTORY: Midsternal cp after object fell on patients chest x3days ago Comparison: 06/18/2019. RESULT: Lines, tubes, and devices: Cholecystectomy clips. Lungs and pleura: Clear. Cardiomediastinal silhouette: Stable. Other: No acute osseous or upper abdominal finding. IMPRESSION: No acute cardiopulmonary process. Reviewed, dictated and finalized at location K. AL GENETICIST
--- NOTE | 2022-04-18 14:54 | ECG_ITS ---
Measurements Intervals [place] Rate: 85 P: 78 OK: 143 QRS: -29 QRSD: 84 T: 52 QT: 357 QTc: 426 Interpretive Statements SINUS RHYTHM POSSIBLE LEFT ATRIAL ENLARGEMENT RSR' IN V1 OR V2, PROBABLY NORMAL VARIANT BORDERLINE ECG COMPARED TO ECG 06/18/2019 12:19:25 SINUS RHYTHM NOW PRESENT Electronically Signed On 04-18-2022 15:14:13 SALES CONSULTANT by Jacob Aponte D.O.
[2022-04-18 15:03] VITALS: BP 113/72; PULSE 90; RESP 16; TEMP 36.9; O2SAT 98
[2022-04-18 15:46] VITALS: PULSE 85; O2SAT 98
[2022-04-18 15:47] VITALS: BP 110/74; PULSE 92; RESP 19; O2SAT 98
--- NOTE | 2022-04-18 16:10 | ED.CHESTPAIN ---
HPI - Chest Pain General Chief Complaint: Chest Pain Stated Complaint: Chest pain r/t injury Time Seen by Provider: 04/18/22 15:56 History of Present Illness HPI narrative: Patient is a [age]-year-old female here for evaluation of central chest pain over the past 2 days. Patient states that she sustained a fall onto a blunt object 2 days ago, landing on her chest. Patient states that since then she has had central chest pain where she fell, difficulty breathing due to the pain. She is attempted ibuprofen 800 without relief of her pain. No cough, hemoptysis, ecchymosis or blood thinner use. Related Data Allergies Allergy/AdvReac Type Severity Reaction Status Date / Time No Known Allergies Allergy Verified 04/18/22 15:45 Review of Systems Review of Systems: Gen.: Denies fevers or chills Eyes: Denies eye pain or visual change ENT: Denies congestion Respiratory: Denies shortness of breath or cough CV: Reports chest pain in her sternum GI: Denies abdominal pain nausea, emesis or diarrhea denies burning, urgency, frequency or hematuria Musculoskeletal: Denies back pain or muscle pain Neuro: Denies numbness, tingling, weakness or focal weakness Skin: Denies rash Except as documented, all other systems reviewed and negative PMFSH Past Medical History Medical History Asthma Influenza Surgical History Surgical History H/O spinal fusion C6-C7 History of x2 History of cholecystectomy Social History Social History Years smoked: 30 Smoking status: Current every day smoker Tobacco type: cigarettes Alcohol intake: never Substance use: current Substance use type: marijuana Spiritual care concerns: No Exam Narrative: APPEARANCE: Well appearing, no pain in distress, well-nourished. Head: Normocephalic and atraumatic. EYES: PERRLA/EOMI, conjunctivae clear NOSE: No nasal drainage EARS: External ear normal in appearance THROAT: Oropharynx is clear. Mucous membranes are moist. NECK: Supple. No adenopathy, no masses. RESPIRATORY: Equal breath sounds throughout. Airway patent, respirations nonlabored. Clear to auscultation bilaterally, no rales, rhonchi, wheezing. CARDIOVASCULAR: Regular rate and rhythm without murmurs, rubs, or gallops. ABDOMINAL: Normoactive bowel sounds. Soft, nontender, nondistended. No rebound tenderness or guarding. MUSCULOSKELETAL: Tenderness to palpation along the sternum just under the sternal notch, no ecchymosis noted NEURO: Normal speech. No focal neurologic deficits. SKIN: Skin is warm and dry. No rashes. PSYCHIATRIC: Normal affect/mood.. Course Vital Signs Vital signs: Vital Signs Temperature 98.4 F 04/18/22 15:03 Pulse Rate 90 04/18/22 15:03 Respiratory Rate 16 04/18/22 15:03 Blood Pressure 113/72 04/18/22 15:03 Pulse Oximetry 98 04/18/22 15:03 Oxygen Delivery Room Air 04/18/22 15:03 Temperature 98.4 F 04/18/22 15:03 Pulse Rate 93 04/18/22 16:19 Respiratory Rate 23 H 04/18/22 16:19 Blood Pressure 110/73 04/18/22 16:19 Pulse Oximetry 98 04/18/22 16:19 Oxygen Delivery Room Air 04/18/22 15:46 MDM - Chest Pain MDM Narrative Medical decision making narrative: 46-year-old female here for evaluation of central chest pain after falling on an object several days ago. She has tenderness to palpation to her anterior sternum. No flail chest deformity noted or severe ecchymosis. CXR is clear but CT chest shows evidence of a non-displaced sternal fracture and two rib fractures on the right. Given that patient's pain is controlled in ED, she has normal vital signs, her ECG is without concerning findings, she has no flail chest deformity, and there are no damages to underlying structures noted on CT, she is stable for d/c at this time. She was given an incenti
[2022-04-18] MEDS: ACETAMINOPHEN 325 MG TABLET 650 MG PO (16:18)
[2022-04-18] MEDS: LIDOCAINE 5% PATCH 1 PATCH TRANSDERM (16:18)
[2022-04-18] MEDS: methocarbamoL 500 MG TABLET PO (16:18)
[2022-04-18 16:19] VITALS: BP 110/73; PULSE 93; RESP 23; O2SAT 98
--- NOTE | 2022-04-18 16:50 | PC.NURSE ---
Pt to CT scan via stretcher at this time.
[2022-04-18] MEDS: HYDROcodone/acetaminophen (*CRX) 5-325 MG TABLET 1 TAB PO (17:43)
== END 2022-04-18 18:06 | disposition home or self-care (01) ==
PROVIDERS: Emergency Provider Physician Assistant
DX: S22.22XA Fracture of body of sternum, initial encounter for closed fracture (principal); S22.41XA Multiple fractures of ribs, right side, initial encounter for closed fracture; J45.909 Unspecified asthma, uncomplicated; F17.210 Nicotine dependence, cigarettes, uncomplicated; Z98.1 Arthrodesis status; R94.31 Abnormal electrocardiogram [ECG] [EKG]; W01.198A Fall on same level from slipping, tripping and stumbling with subsequent striking against other object, initial encounter
CPT/HCPCS: 71046; 71250; 93005; 99284; A9270

== ENCOUNTER 2022-10-07 10:57 | Emergency (ER) | payer OTHER, SELFPAY ==
--- NOTE | ~2022-10-07 | XR_ITS ---
Portable chest x-ray Comparison: 04/18/2022 Clinical History: Cough, Covid 19 positive Findings: Lungs are clear, without focal consolidation or pleural effusion. Cardiomediastinal silho uette is stable. Bones and soft tissues are unremarkable. Impression: Clear lungs. Reviewed, dictated and finalized at location . Impression: Clear lungs.
[2022-10-07 11:05] VITALS: BP 131/73; PULSE 104; RESP 18; TEMP 36.9; O2SAT 97
[2022-10-07 12:06] LABS: Influenza A QL RT-PCR Negative (Negative); Influenza B QL RT-PCR Negative (Negative); SARS-CoV-2 RNA PCR Positive (Negative)
[2022-10-07] MEDS: SODIUM CHLORIDE 0.9% IV 1,000 ML 999 ML IV CONT (12:23)
[2022-10-07] MEDS: KETOROLAC 30 MG/ML VIAL (*BKC) IV PUSH (12:28)
--- NOTE | 2022-10-07 12:34 | ED.URI ---
HPI - URI/Sore Throat General Chief Complaint: Upper Respiratory Infection Stated Complaint: cold sx Time Seen by Provider: 10/07/22 11:17 Source: patient Mode of arrival: ambulatory Limitations: no limitations History of Present Illness HPI Narrative: Patient is a 47-year-old female who presents to the ED with report of upper respiratory symptoms. Patient reports she woke up this morning feeling unwell, with nonproductive cough, congestion, rhinorrhea, body aches, subjective fever, headache. She notes her significant other has been sick with similar symptoms over the last 2 days. Patient has been using her nebulizer treatments at home because she felt like she has been wheezing. Denies significant shortness of breath or chest pain. She does have Hx of asthma. Denies sore throat, abdominal pain, nausea, vomiting. Related Data Allergies Allergy/AdvReac Type Severity Reaction Status Date / Time No Known Allergies Allergy Verified 04/18/22 15:45 Review of Systems Review of Systems: CONSTITUTIONAL: See HPI. ENT: See HPI. CARDIOVASCULAR: Denies chest pain, palpitations, or edema. RESPIRATORY: See HPI. GASTROINTESTINAL: Denies abdominal pain, nausea, vomiting, or diarrhea. MUSCULOSKELETAL: See HPI. NEUROLOGIC: See HPI. All systems reviewed & are unremarkable except as noted in HPI and below PMFSH Past Medical History Medical History Asthma Influenza Surgical History Surgical History H/O spinal fusion C6-C7 History of x2 History of cholecystectomy Social History Social History Years smoked: 30 Smoking status: Current every day smoker Tobacco type: cigarettes Alcohol intake: never Substance use: current Substance use type: marijuana Living arrangements: with family Spiritual care concerns: No Exam Narrative: GENERAL: Well appearing, well-nourished, non-toxic, in no acute distress. HEAD: Normocephalic, atraumatic. EENT: PERRLA/EOMI, conjunctiva clear. Mild posterior pharynx erythema, no tonsillar hypertrophy or exudate. Uvula midline. NECK: Supple. No adenopathy, no masses. RESPIRATORY: Airway patent, respirations nonlabored. Clear to auscultation bilaterally, no rales, rhonchi. No focal lung sounds. No wheezing heard throughout lung rice. CARDIOVASCULAR: Regular rate and rhythm without murmurs, rubs, or gallops. Radial pulses 2+ and equal bilaterally. ABDOMINAL: Soft, nontender, nondistended, no hepatosplenomegaly. Normoactive BS. MUSCULOSKELETAL: Moves all extremities. Strength/ROM intact without gross deformities. No edema. SKIN: Warm, dry, normal color. No rashes. NEURO: A&O X3. Speech clear. Cranial nerves II-XII grossly intact. Steady gait. No ataxic movements. PSYCHIATRIC: Appropriate mood and affect. Normal interaction. Course Vital Signs Vital signs: Vital Signs Temperature 98.5 F 10/07/22 11:05 Pulse Rate 104 H 10/07/22 11:05 Respiratory Rate 18 10/07/22 11:05 Blood Pressure 131/73 10/07/22 11:05 Pulse Oximetry 97 10/07/22 11:05 Temperature 98.4 F 10/07/22 13:38 Pulse Rate 98 10/07/22 13:38 Respiratory Rate 18 10/07/22 13:38 Blood Pressure 110/71 10/07/22 13:38 Pulse Oximetry 98 10/07/22 13:38 MDM - URI/Sore Throat MDM Narrative Medical decision making narrative: Patient presented to ED with 1 day history of URI symptoms, significant other with similar symptoms. VSS upon arrival, patient in no acute distress. Exam unremarkable. Clear lung sounds, no wheezing heard. CXR clear. Viral swabs were ordered and patient's COVID testing resulted positive. Patient was given fluids and Toradol in the ED. She is feeling better with supportive therapy and will be discharged at this time. Discussed management of COVID-19 and quarantine at home.
[2022-10-07 13:38] VITALS: BP 110/71; PULSE 98; RESP 18; TEMP 36.9; O2SAT 98
== END 2022-10-07 13:40 | disposition home or self-care (01) ==
PROVIDERS: Emergency Provider Physician Assistant
DX: U07.1 COVID-19 (principal); J45.909 Unspecified asthma, uncomplicated; Z98.1 Arthrodesis status; Z90.49 Acquired absence of other specified parts of digestive tract; F17.210 Nicotine dependence, cigarettes, uncomplicated
CPT/HCPCS: 71045; 87636; 96361; 96374; 99284; J1885; J7030

== ENCOUNTER 2022-11-25 09:50 | Emergency (ER) | payer OTHER, SELFPAY ==
--- NOTE | ~2022-11-25 | XR_ITS ---
EXAMINATION: XR shoulder LT min 2V DATE: 11/25/2022 10:13 INDICATION: Inability to raise left arm post injury 2 days prior TECHNIQUE: AP internally and externally rotated, AP oblique externally rotated and transscapular Y vi ews of the left shoulder were obtained. COMPARISON: None FINDINGS: Normal alignment. Old healed fracture at the posterolateral left seventh rib. No acute fracture. Manuel ohumeral joint is normal. Mild acromioclavicular osteoarthritis with mild subarticular cystic change at the acromion. Severe cervical spondylosis with plain screw fixation for C6-C7 anterior spinal fusi on. Soft tissues are unremarkable. Visualized portion of the lungs are clear. IMPRESSION: Mild left acromioclavicular osteoarthritis. No acute osseous abnormality. Reviewed, dictated and finalized at location A.
--- NOTE | 2022-11-25 09:58 | ED.UPPEXIN ---
HPI - Extremity Injury (Upper) General Chief Complaint: Extremity Injury, Upper Stated Complaint: L SHOULDER INJURY Time Seen by Provider: 11/25/22 09:58 Source: patient Mode of arrival: ambulatory Limitations: no limitations History of Present Illness HPI narrative: 47 yo F presents with pain to L shoulder. Two days ago at work pt lifted crate off a shelf that was above her head. Was full of two gallons of juice. [place] pop to L shoulder and now has decreased ROM. Pain radiates down L arm with movement. distal NV intact. has appt with PCP dec 09. All systems reviewed and negative except as noted above. Related Data Allergies Allergy/AdvReac Type Severity Reaction Status Date / Time No Known Allergies Allergy Verified 04/18/22 15:45 Review of Systems Review of Systems: CONSTITUTIONAL: Denies fever, chills, or sweats. EYES: Denies visual changes, redness, or discharge. ENT: Denies rhinorrhea, congestion, sore throat, or otalgia. CARDIOVASCULAR: Denies chest pain, palpitations, or edema. RESPIRATORY: Denies cough or dyspnea. GASTROINTESTINAL: Denies abdominal pain, nausea, vomiting, or diarrhea. GENITOURINARY: Denies dysuria or hematuria. SKIN: Denies rash or itching. MUSCULOSKELETAL: Denies back pain, or myalgia. Reports pain to left shoulder. NEUROLOGIC: Denies headache, numbness, or weakness. PSYCHIATRIC: Denies anxiety or depression. All other systems reviewed are negative, except as documented in HPI. [facility] Past Medical History Medical History Asthma Influenza Surgical History Surgical History H/O spinal fusion C6-C7 History of x2 History of cholecystectomy Social History Social History Years smoked: 30 Smoking status: Current every day smoker Tobacco type: cigarettes Alcohol intake: never Substance use: current Substance use type: marijuana Living arrangements: with family Spiritual care concerns: No Comments At time of signature, agree with nursing past medical, surgical, social and family history. There is no relevant family history pertinent to the presenting complaint. Exam Narrative: GENERAL: This is a well-nourished, well-developed patient, in no apparent distress. HEAD: normocephalic, atraumatic. EYES: PERRL. Sclera clear/white. Vision is grossly intact. EARS: External ears normal NOSE: External nose normal NECK: Neck supple, non-tender without lymphadenopathy, masses or thyromegaly. CARDIOVASCULAR: Regular rate and rhythm without murmurs, gallops, or rubs. RESPIRATORY: Clear to auscultation. Breath sounds equal bilaterally. No wheezes, rales, or rhonchi. SKIN: warm, Dry, intact with no suspicious lesions or rash, good texture and turgor. NEURO: awake, alert, and oriented to person, place and time. There were no obvious focal neurologic abnormalities. EXTREMITIES: No effusion or edema noted. tenderness on palpation of L AC joint. difficult to assess ROM and strength due to pt's pain. Course Course Level of Care: Express Care Visit Vital Signs Vital signs: Vital Signs Temperature 36.5 C 11/25/22 10:05 Pulse Rate 104 H 11/25/22 10:05 Respiratory Rate 16 11/25/22 10:05 Blood Pressure 119/80 11/25/22 10:05 Pulse Oximetry 98 11/25/22 10:05 Temperature 36.5 C 11/25/22 10:05 Pulse Rate 104 H 11/25/22 10:05 Respiratory Rate 16 11/25/22 10:05 Blood Pressure 119/80 11/25/22 10:05 Pulse Oximetry 98 11/25/22 10:05 Reviewed MDM - Extremity Injury (Upper) MDM Narrative Medical decision making narrative: discussed x-ray results with pt. recommend follow up with PCP for further evaluation due to decreased ROM. pt may need additional imaging, such as MRI, to evaluate injury. Patient is aware of diagnosis, understands and agrees to
[2022-11-25 10:05] VITALS: BP 119/80; PULSE 104; RESP 16; TEMP 36.5; O2SAT 98
== END 2022-11-25 10:39 | disposition home or self-care (01) ==
PROVIDERS: Emergency Provider Nurse Practitioner Family
DX: S46.912A Strain of unspecified muscle, fascia and tendon at shoulder and upper arm level, left arm, initial encounter (principal); X50.0XXA Overexertion from strenuous movement or load, initial encounter; Y99.0 Civilian activity done for income or pay; J45.909 Unspecified asthma, uncomplicated; F17.210 Nicotine dependence, cigarettes, uncomplicated
CPT/HCPCS: 73030; 99213; A4565; G0463

== ENCOUNTER 2023-02-03 14:46 | Outpatient (CLI) | payer OTHER, SELFPAY ==
--- NOTE | ~2023-02-03 | MM_ITS ---
EXAMINATION: MM screening [place] BI w josh HISTORY: Screening mammogram TECHNIQUE: Craniocaudal and mediolateral oblique 3-D tomosynthesis images were obtained and synthetic 2-D images were generated. CAD analysis was submitted and interpreted. COMPARISON: No prior mammogram is available for comparison at this institution. BREAST PARENCHYMAL COMPOSITION: The breasts are almost entirely fatty. FINDINGS: There is no evidence of suspicious mass, calcification, or architectural distortion to sugg est malignancy in either breast. IMPRESSION: 1. No mammographic evidence of malignancy. 2. Recommend routine screening mammography in one year. BI-RADS Category 1: Negative Reviewed, dictated and finalized at location A.
== END 2023-02-03 14:47 | disposition home or self-care (01) ==
PROVIDERS: Visit Provider Nurse Practitioner Family
DX: Z12.31 Encounter for screening mammogram for malignant neoplasm of breast (principal); M79.604 Pain in right leg; M79.605 Pain in left leg
CPT/HCPCS: 77063; 77067

== ENCOUNTER 2024-02-06 13:54 | Outpatient (CLI) | payer OTHER, SELFPAY ==
--- NOTE | ~2024-02-06 | MM_ITS ---
EXAMINATION: MM screening [place] BI w josh HISTORY: Screening mammogram TECHNIQUE: Craniocaudal and mediolateral oblique 3-D tomosynthesis images were obtained and synthetic 2-D images were generated. CAD analysis was submitted and interpreted. COMPARISON: 02/03/2023 BREAST PARENCHYMAL COMPOSITION:Not Dense. The breasts are almost entirely fatty FINDINGS: No suspicious mass, calcification, or architectural distortion are identified in either eliz ast to suggest malignancy. There has been no suspicious interval change. IMPRESSION: No mammographic evidence of malignancy. Recommend routine screening mammography in one year. BI-RADS Category 1: Negative Reviewed, dictated and finalized at location .
== END 2024-02-06 13:55 | disposition home or self-care (01) ==
LOC: ANHIMG 13:57
PROVIDERS: PCP Family Medicine; Visit Provider Internal Medicine
DX: Z12.31 Encounter for screening mammogram for malignant neoplasm of breast (principal)
CPT/HCPCS: 77063; 77067